=== PATIENT | male | born 1960 | race African-American/Black ===

== ENCOUNTER 2018-05-17 21:46 | Emergency (ER) | payer SELFPAY ==
[~2018-05-17] VITALS: Ht 193 cm; Wt 77.1 kg
[2018-05-17 21:56] VITALS: BP 138/69
[2018-05-17] MEDS ORDERED: ACETAMINOPHEN ES 500 MG TABLET ONE (22:59)
[2018-05-17] MEDS ORDERED: CYCLOBENZAPRINE 10 MG TABLET ONE (22:59)
[2018-05-17] MEDS ORDERED: CYCLOBENZAPRINE 10 MG TABLET PO ONE (23:00)
[2018-05-17] MEDS ORDERED: ACETAMINOPHEN ES 500 MG TABLET PO ONE (23:00)
--- NOTE | 2018-05-17 23:01 | NUR ---
PT TO CT VIA STRETCHER. VSS.
--- NOTE | 2018-05-17 23:07 | NUR ---
PT BACK FROM CT.
== END 2018-05-18 00:44 | disposition home or self-care (01) ==
LOC: ER 21:48
DX: S16.1XXA Strain of muscle, fascia and tendon at neck level, initial encounter (principal); E78.00 Pure hypercholesterolemia, unspecified; Z88.6 Allergy status to analgesic agent; V49.49XA Driver injured in collision with other motor vehicles in traffic accident, initial encounter; Y93.89 Activity, other specified; Y92.413 State road as the place of occurrence of the external cause; Y99.8 Other external cause status
CPT/HCPCS: 72125-TC; 72131-TC; A4606; Z7610

== ENCOUNTER 2019-03-05 04:29 | Emergency (ER) | payer OTHER ==
[~2019-03-05] VITALS: Ht 193 cm; Wt 75.3 kg
[2019-03-05 04:45] VITALS: BP 132/76
[2019-03-05] MEDS ORDERED: TRAMADOL HCL 50 MG TABLET PO ONE (05:00)
== END 2019-03-05 06:03 | disposition home or self-care (01) ==
LOC: ER 04:29
DX: G62.9 Polyneuropathy, unspecified (principal); E78.00 Pure hypercholesterolemia, unspecified; Z88.6 Allergy status to analgesic agent